=== PATIENT | male | born 1955 | race Caucasian/White ===

== ENCOUNTER 2018-09-25 12:08 | Observation (INO) ==
--- NOTE | 2018-09-25 12:29 | Emergency Department Note ---
Disposition Clinical Impression: Cellulitis of right lower extremity, Open wound of right lower extremity Disposition: Admitted As Inpatient Referrals: NONE,PCP [Primary Care Provider] - Forms: ED Satisfaction Letter Time of Disposition: 16:50 General Adult HPI - General Chief complaint: ED Extremity Injury, Lower Stated complaint: RLE cellulitis Time Seen by Provider: 09/25/18 12:28 - History of Present Illness HPI Narrative: 63-year-old male reports to the emergency department with concerns for right lower extremity swelling and redness. He has been under the care of the wound care center regarding ulcers and wounds on his right leg. The patient states he was sent in for evaluation by wound center personnel for concerns regarding increasing redness and swelling. The patient had recently been on a course of antibiotics, his leg improved, then over the last week things have been worsening. The patient is not diabetic. There is no history of coldness blueness numbness or weakness the right lower extremity. No trauma. The patient denies chest pain shortness of breath abdominal pain vomiting or diarrhea. No acute back pain fevers or rashes on other portions of the body are noted. The patient denies bite or skin injury. There is no history of diabetes mellitus. He describes a remote right lower extremity surgery 20 years ago at [facility] but is unsure what that surgery was. The patient is not anticoagulated. There is no history of syncope or coughing up blood. The patient has no history of DVT or PE. He does describe a history of leukemia. He reports he feels somewhat anxious about his right leg redness. Last tetanus shot 3 years ago. Pain Scale: 0 - Related Data Home Medications Medication Instructions Recorded Confirmed Atorvastatin [Lipitor] 20 mg PO HS 08/03/16 10/24/17 Diclofenac Potassium 100 mg PO HS 08/03/16 10/24/17 Ibuprofen [Motrin] 200 mg PO Q6HR PRN 08/03/16 10/24/17 Cholecalciferol (D-3) [Vitamin D] 1,000 unit PO DAILY 08/17/16 10/24/17 Aspirin [Lo-Dose Aspirin EC] 81 mg PO DAILY 08/02/17 10/24/17 Allergies Allergy/AdvReac Type Severity Reaction Status Date / Time No Known Allergies Allergy Verified 10/24/17 08:37 All systems ED: reviewed and negative except as stated. Physical Exam - General Limitations: no limitations General appearance: alert, in no apparent distress - Head Head exam: atraumatic, normocephalic, normal inspection - Eye Eye exam: Present: normal appearance, PERRL, EOMI - ENT ENT exam: normal exam, normal oropharynx, mucous membranes moist, normal external ear exam - Neck Neck exam: Present: normal inspection, full ROM, trachea midline - Chest Chest inspection: Present: symmetric chest wall rise. Absent: tenderness - Respiratory Respiratory exam: Present: normal lung sounds bilaterally. Absent: respiratory distress, prolonged expiratory phase - Cardiovascular Cardiovascular exam: Present: regular rate, normal rhythm, normal heart sounds - Abdominal Exam Abdominal exam: Present: soft, Non-Tender, normal bowel sounds. Absent: tenderness, distention, guarding, rebound, rigidity - Extremities Exam Extremities exam: Present: full ROM, normal capillary refill. Absent: joint swelling - Expanded Lower Extremity Exam Knee exam: Present: tenderness, swelling, abrasion, other (All 4 extremities are warm and well perfused without evidence of deepali neurovascular or neuromuscular compromise. The upper extremities and left lower extremity are normative in appearance. The right lower extremity below the knee demostrates significant reddening of the skin throughout with an open sore on the right lateral aspect. There is significant swelling throughout without crepitance of the skin. The right lower extremity shows a palpable dorsalis pedis pulse. The right knee thigh and hip show good range of motion throughout no evidence of redness or swelling in the thigh or knee areas.) Neurovascular/Tendon exam: Present: normal capillary refill. Absent: motor deficit, sensory deficit, tendon deficit, extremity cold to touch - Back Exam Back exam: Present: normal inspection, full ROM. Absent: tenderness, CVA tenderness (R), CVA tenderness (L), vertebral tenderness - Neurological Exam Neurological exam: Present: alert, oriented X3, CN II-XII intact. Absent: motor sensory deficit - Psychiatric Psychiatric exam: Present: normal affect, normal mood - Skin Skin exam: Present: warm, dry, intact, normal color Course Vital Signs Temperature 97.8 F 09/25/18 12:14 Pulse Rate 66 09/25/18 12:14 Respiratory Rate 16 09/25/18 12:14 Blood Pressure 131/82 09/25/18 12:14 O2 Sat by Pulse Oximetry 99 09/25/18 12:14 Temperature 97.8 F 09/25/18 13:04 Pulse Rate 60 09/25/18 16:44 Respiratory Rate 18 09/25/18 16:44 Blood Pressure 126/89 09/25/18 16:44 O2 Sat by Pulse Oximetry 100 09/25/18 16:44 Oxygen Delivery Oxygen Delivery Room Air Medical Decision Making - MDM Narrative Medical decision making narrative: The patient describes redness and swelling in the right leg for the last several weeks, he was treated with antibiotics and apparently improved but then got worse. He has been evaluated by the wound center who sent him in for evaluation. The patient describes a remote history of right lower extremity maycol divina at [facility], he is unsure why he had surgery. There is no history of acute trauma to the right lower extremity is not known to be diabetic. He states he has a history of leukemia. The patient's white blood cell count is slightly elevated. His right lower extremity demonstrates no crepitance, there is no evidence of deepali neurovascular or neuromuscular compromise. Based on the patient's apparent failed outpatient therapy with a prior course of antibiotics and recurrent and worsening right lower extremity redness I thought it be appropriate to admit the patient to the hospital. He has circumferential redness, the right dorsalis pedis pulse is palpable. He is neurovascularly intact. I do not neccessarily suspect DVT. Broad-spectrum antibacterial therapy was initiated. Blood cultures were sent. The patient does not appear to meet sepsis criteria. I discussed the case with the hospitalist on-call who has accepted the patient to their care. The patient is agreeable. - Lab Data Lab results reviewed: Yes I reviewed the patient's lab results. Result diagrams: 09/25/18 13:06 09/25/18 13:06 Lab Results 09/25/18 09/25/18 09/25/18 Range/Units 12:56 13:06 13:06 WBC 14.8 H (4.3-11.1) K/mcL RBC 5.10 (4.19-5.50) M/mcL Hgb 13.9 (12.9-16.9) g/dL Hct 44.4 (37.5-50.1) % MCV 87.1 (83.0-100.0) fL MCH 27.3 L (28.0-33.3) pg MCHC 31.3 L (31.6-35.5) g/dL RDW 15.0 H (11.5-14.5) % Plt Count 183 (140-400) K/mcL MPV 9.8 (9.4-12.4) fL Seg Neutrophils % 25.0 % Lymphocytes % 68.0 % Monocytes % 4.0 % Eosinophils % 3.0 % Neutrophils # 3.7 (1.6-8.9) K/mcL Lymphocytes # 10.1 H (0.6-4.6) K/mcL Monocytes # 0.6 (0.0-1.3) K/mcL Eosinophils # 0.4 (0.0-0.6) K/mcL Nucleated RBCs/100 WBC 0.3 H (0) /100 WBC Smudge Cells Present A (Not Present) Platelet Estimate Normal (Normal) ESR 18 H (0-10) mm/hr PT 11.1 (9.4-12.1) Seconds INR 1.0 APTT 31.1 (26.0-36.0) Seconds Sodium (136-145) mEq/L Potassium (3.5-5.1) mEq/L Chloride (98-107) mEq/L Carbon Dioxide (23-29) mEq/L BUN (8-23) mg/dL Creatinine (0.70-1.30) mg/dL Est GFR ( Amer) (> 60) Est GFR (Non-Af Amer) (> 60) BUN/Creatinine Ratio (6-26) Glucose (70-105) mg/dL Calculated Osmolality (280-300) Lactic Acid (0.5-2.2) mmol/L Calcium (8.6-10.3) mg/dL Total Bilirubin (0.3-1.0) mg/dL Direct Bilirubin (0.0-0.2) mg/dL Indirect Bilirubin (0.0-1.2) mg/dL AST (13-39) Units/L ALT (7-52) Units/L Alkaline Phosphatase (34-104) Units/L C-Reactive Protein (Less than 10) mg/L Serum Total Protein (6.4-8.9) g/dL Albumin (3.5-5.7) g/dL Globulin (2.4-3.5) g/dL Albumin/Globulin Ratio (1.1-2.2) Urine Color (Yellow) Urine Clarity (Clear) Urine pH (5.0-8.0) pH Units Ur Specific [place] (1.010-1.025) Urine Protein (Neg-Trace) mg/dL Urine Glucose (UA) (Normal) mg/dL Urine Ketones (Negative) mg/dL Urine Blood (Negative) Urine Nitrite (Negative) Urine Bilirubin (Negative) Urine Urobilinogen (Normal) mg/dL Ur Leukocyte Esterase (Negative) Ur Culture Indicated? (NO) 09/25/18 09/25/18 09/25/18 Range/Units 13:06 13:06 14:00 WBC (4.3-11.1) K/mcL RBC (4.19-5.50) M/mcL Hgb (12.9-16.9) g/dL Hct (37.5-50.1) % MCV (83.0-100.0) fL MCH (28.0-33.3) pg MCHC (31.6-35.5) g/dL RDW (11.5-14.5) % Plt Count (140-400) K/mcL MPV (9.4-12.4) fL Seg Neutrophils % % Lymphocytes % % Monocytes % % Eosinophils % % Neutrophils # (1.6-8.9) K/mcL Lymphocytes # (0.6-4.6) K/mcL Monocytes # (0.0-1.3) K/mcL Eosinophils # (0.0-0.6) K/mcL Nucleated RBCs/100 WBC (0) /100 WBC Smudge Cells (Not Present) Platelet Estimate (Normal) ESR (0-10) mm/hr PT (9.4-12.1) Seconds INR APTT (26.0-36.0) Seconds Sodium 139 (136-145) mEq/L Potassium 4.3 (3.5-5.1) mEq/L Chloride 107 (98-107) mEq/L Carbon Dioxide 27 (23-29) mEq/L BUN 18 (8-23) mg/dL Creatinine 1.14 (0.70-1.30) mg/dL Est GFR ( Amer) > 60 (> 60) Est GFR (Non-Af Amer) > 60 (> 60) BUN/Creatinine Ratio 16 (6-26) Glucose 93 (70-105) mg/dL Calculated Osmolality 290 (280-300) Lactic Acid 1.2 (0.5-2.2) mmol/L Calcium 9.2 (8.6-10.3) mg/dL Total Bilirubin 0.9 (0.3-1.0) mg/dL Direct Bilirubin 0.2 (0.0-0.2) mg/dL Indirect Bilirubin 0.7 (0.0-1.2) mg/dL AST 16 (13-39) Units/L ALT 21 (7-52) Units/L Alkaline Phosphatase 110 H (34-104) Units/L C-Reactive Protein 7 (Less than 10) mg/L Serum Total Protein 6.9 (6.4-8.9) g/dL Albumin 4.4 (3.5-5.7) g/dL Globulin 2.5 (2.4-3.5) g/dL Albumin/Globulin Ratio 1.8 (1.1-2.2) Urine Color Yellow (Yellow) Urine Clarity Clear (Clear) Urine pH 6.5 (5.0-8.0) pH Units Ur Specific [place] 1.011 (1.010-1.025) Urine Protein Negative (Neg-Trace) mg/dL Urine Glucose (UA) Normal (Normal) mg/dL Urine Ketones Negative (Negative) mg/dL Urine Blood Negative (Negative) Urine Nitrite Negative (Negative) Urine Bilirubin Negative (Negative) Urine Urobilinogen Normal (Normal) mg/dL Ur Leukocyte Esterase Negative (Negative) Ur Culture Indicated? NO (NO) - Radiology Data Radiology results reviewed: Yes I reviewed the patient's radiology results.
[2018-09-25] MEDS ORDERED: 0.9 % Sodium Chloride 1,000 ML IVC ONE (12:42)
[2018-09-25] MEDS ORDERED: Clindamycin 600 MG/50 ML 600 MG/50 ML IV.SOLN IVPB STA (12:43)
[2018-09-25] MEDS ORDERED: Piperacillin/Tazobactam 4.5 GM in Water for inj. (sterile) 20 ML IVP ONE (12:43)
[2018-09-25] MEDS ORDERED: Vancomycin (wt based) 1,000 MG VIAL IV ONE (12:43)
[2018-09-25] MEDS ORDERED: *HR* LORazepam 2 MG/ML VIAL IVP ONE (12:44)
[2018-09-25] MEDS ORDERED: Isovue-370 500 ML BOTTLE IVP ONE (12:44)
[2018-09-25] MEDS ORDERED: Piperacillin/Tazobactam 3.375 GM in 0.9 % Sodium Chloride Mini Bag 100 ML IVPB ONE (13:13)
[2018-09-25 13:25] LABS: Hematocrit 44.4 % (37.5-50.1); Hemoglobin 13.9 g/dL (12.9-16.9); Mean Corpuscular HGB Conc 31.3 g/dL (31.6-35.5); Mean Corpuscular Hemoglobin 27.3 pg (28.0-33.3); Mean Corpuscular Volume 87.1 fL (83.0-100.0); Mean Platelet Volume 9.8 fL (9.4-12.4); Monocytes # 0.6 K/mcL (0.0-1.3); Nucleated Red Blood Cells 0.3 /100 WBC (0); Platelet Count 183 K/mcL (140-400); White Blood Count 14.8 K/mcL (4.3-11.1)
[2018-09-25 13:34] LABS: Prothrombin Time 11.1 Seconds (9.4-12.1)
[2018-09-25 13:36] LABS: Activated Partial Thrombo Time 31.1 Seconds (26.0-36.0)
[2018-09-25 13:47] LABS: Alanine Aminotransferase 21 Units/L (7-52); Albumin 4.4 g/dL (3.5-5.7); Albumin/Globulin Ratio 1.8 (1.1-2.2); Alkaline Phosphatase 110 Units/L (34-104); Aspartate Amino Transferase 16 Units/L (13-39); BUN/Creatinine Ratio 16 (6-26); Bilirubin,Direct 0.2 mg/dL (0.0-0.2); Bilirubin,Indirect 0.7 mg/dL (0.0-1.2); Bilirubin,Total 0.9 mg/dL (0.3-1.0); Blood Urea Nitrogen 18 mg/dL (8-23); C-Reactive Protein 7 mg/L (Less than 10); Calcium 9.2 mg/dL (8.6-10.3); Carbon Dioxide 27 mEq/L (23-29); Chloride 107 mEq/L (98-107); Globulin 2.5 g/dL (2.4-3.5); Glucose 93 mg/dL (70-105); Osmolality,Calculated 290 (280-300); Potassium 4.3 mEq/L (3.5-5.1); Sodium 139 mEq/L (136-145); Total Protein 6.9 g/dL (6.4-8.9); eGFR For African Americans > 60 (> 60); eGFR For Non-African Americans > 60 (> 60)
[2018-09-25 14:15] LABS: Bilirubin,Urine Negative (Negative); Blood,Urine Negative (Negative); Clarity,Urine Clear (Clear); Color,Urine Yellow (Yellow); Glucose,Urine (UA) Normal (Normal); Ketones,Urine Negative (Negative); Leukocyte Esterase,Urine Negative (Negative); Nitrite,Urine Negative (Negative); PH,Urine 6.5 pH Units (5.0-8.0); Protein,Urine Negative (Neg-Trace); Specific Gravity,Urine 1.011 (1.010-1.025); Urobilinogen,Urine Normal (Normal)
[2018-09-25 14:20] LABS: Eosinophils # 0.4 K/mcL (0.0-0.6); Lymphocytes # 10.1 K/mcL (0.6-4.6); Neutrophils # 3.7 K/mcL (1.6-8.9)
[2018-09-25 14:22] LABS: Platelet Estimate Normal (Normal); Smudge Cells Present (Not Present)
[2018-09-25] MEDS ORDERED: Naloxone 0.4 MG/ML INJ IVP PRN (16:45)
[2018-09-25] MEDS ORDERED: traMADol 50 MG TABLET PO PRN (16:45)
[2018-09-25] MEDS ORDERED: Vancomycin 1,750 MG in 0.9 % Sodium Chloride 250 ML IVPB SCH (17:00)
[2018-09-25 17:08] LABS: Creatine Kinase 37 Units/L (30-223)
--- NOTE | 2018-09-25 17:15 | Internal Med History&Physical ---
Date of Encounter: 09/25/18 Time of Encounter: 17:09 Internal Medicine - H&P: HPI Chief complaint: worsening cellulitis of the right lower extr Admitted From: Home Plans for Post Hospital Care: Home History of present illness: Mr. 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 Patient presented to the ED due to worsening erythema on the right lower extr. patient reports having a chronic cellulitis on the right lower extr for about 1 year now and he follows up with wound care in the outpatient clinic. Reported completing a course of oral antibiotics about 1 month ago, but stated for about a week now the right lower extremity looks more read and slightly more swollen, and has some darkening of the skin on the lateral side of his calf, where he has an ulcer. Today he went to his follow up appointment at the wound clinic and was instructed to come to the ed for IV antibiotics as the extremity looks worse. He denies fever, chills, nausea, or vomiting. Denies trauma to the extremity. Past Med Surg Social Fam HX - Past Medical History Medical history: other Additional medical history: Leukemia LS Psychiatric history: no psych history - Past Surgical History Additional surgical history: I&D right leg - Social History Smoking Status: Never smoker Smokeless Tobacco Status: No Alcohol use: occasionally Drug use: none Internal Medicine - H&P: Meds Atorvastatin [Lipitor] 20 mg PO HS 08/03/16 [History] Diclofenac Potassium 100 mg PO HS 08/03/16 [History] Ibuprofen [Motrin] 200 mg PO Q6HR PRN 08/03/16 [History] Cholecalciferol (D-3) [Vitamin D] 1,000 unit PO DAILY 08/17/16 [History] Aspirin [Lo-Dose Aspirin EC] 81 mg PO DAILY 08/02/17 [History] Allergy/AdvReac Type Severity Reaction Status Date / Time No Known Allergies Allergy Verified 10/24/17 08:37 All Systems PM: A 10-system review of systems was performed and is negative for pertinent findings except as documented above in the HPI. - Constitutional Constitutional: no chills, no fever(s), no weakness - EENT Eyes: no pain Nose, mouth and throat: no dental pain - Cardiovascular Cardiovascular ROS IM: no chest pain, no dyspnea on exertion, no edema, no irregular heart rhythm, no lightheadedness - Respiratory Respiratory: no cough, no wheezing - Gastrointestinal Gastrointestinal: no abdominal pain, no melena, no nausea, no tenesmus, no vomiting - Genitourinary Genitourinary ROS male: no dysuria - Musculoskeletal Musculoskeletal ROS IM: no back pain - Integumentary Integumentary IM: erythema (Right lower extremity.) - Neurological Neurological ROS: no headache(s) - Psychiatric Psychiatric: no anxiety - Endocrine Endocrine IM: no cold intolerance, no excessive sweating - Hematologic/Lymphatic Hematologic/Lymphatic: no lymphadenopathy - Allergic/Immunologic Allergic/Immunologic: no wheezing, no GI upset with certain foods - Constitutional Vitals: Temp Pulse Resp BP Pulse Ox 97.8 F 60 18 126/89 100 09/25/18 13:04 09/25/18 16:44 09/25/18 16:44 09/25/18 16:44 09/25/18 16:44 Exam: Vitals: Reviewed. General: Alert and oriented 4. In no acute distress. Cardiovascular: RRR, normal S1 & S2, no rubs, murmurs or gallops. Lungs: CTA b/l, no wheezes or crackles. Abdomen: Obese, soft, non-tender, no rigidity. Extremities: edema, erythema of the right lower extr. No tenderness to palpation Neurological: Normal cognition and motor skills. Rest of the physical exam is non contributory Internal Med - H&P Results - Labs CBC & Chem 7: 09/25/18 13:06 09/25/18 13:06 Labs: Short CBC 09/25/18 Range/Units 13:06 WBC 14.8 H (4.3-11.1) K/mcL Hgb 13.9 (12.9-16.9) g/dL Hct 44.4 (37.5-50.1) % Plt Count 183 (140-400) K/mcL Neutrophils # 3.7 (1.6-8.9) K/mcL BMP 09/25/18 13:06 Sodium 139 Potassium 4.3 Chloride 107 Carbon Dioxide 27 BUN 18 Creatinine 1.14 Glucose 93 Calcium 9.2 Liver Function 09/25/18 Range/Units 13:06 Total Bilirubin 0.9 (0.3-1.0) mg/dL Direct Bilirubin 0.2 (0.0-0.2) mg/dL AST 16 (13-39) Units/L ALT 21 (7-52) Units/L Alkaline Phosphatase 110 H (34-104) Units/L Albumin 4.4 (3.5-5.7) g/dL Urine 09/25/18 Range/Units 14:00 Urine Color Yellow (Yellow) Urine Clarity Clear (Clear) Urine pH 6.5 (5.0-8.0) pH Units Ur Specific [place] 1.011 (1.010-1.025) Urine Protein Negative (Neg-Trace) mg/dL Urine Glucose (UA) Normal (Normal) mg/dL - Impressions ITS Impressions Lower Extremity CT 09/25/18 12:44 IMPRESSION: 1. Subcutaneous edema/inflammation with skin thickening along the anteromedial aspect of the leg, extending circumferentially at the level of the ankle. This is in keeping with the clinical history of erythema and swelling. There is no formed fluid collection or abscess. 2. No evidence of soft tissue gas. 3. No acute osseous abnormality. 4. Tricompartmental degenerative changes in the knee with small effusion. D/ / 09/25/2018 16:02:46 [facility] Interpreting Provider: Marco Lala MD - Assessment and Plan (1) Cellulitis of right lower extremity Current Visit: Yes Status: Acute Assessment and plan: Patient with a chronic cellulitis of the right lower ext. with worsening erythema over the past weeks. CT/CT lower leg RT w con IMPRESSION: 1. Subcutaneous edema/inflammation with skin thickening along the anteromedial aspect of the leg, extending circumferentially at the level of the ankle. This is in keeping with the clinical history of erythema and swelling. There is no formed fluid collection or abscess. 2. No evidence of soft tissue gas. 3. No acute osseous abnormality. 4. Tricompartmental degenerative changes in the knee with small effusion. Plan will start patient on broad spectrum antibiotics with vancomycin for MRSA coverage per pharmacy dosing and Piperacillin/Tazobactam 3.375mg/IV Q8HR for pseudomonas coverage tramadol 50mg/PO for pain control draw a map around the erythema to monitor progression extremity elevated >45 degrees doppler us of the lower extr r/o DVT or thrombophlebitis consider ID consult. consider dematology consult for possible biopsy in this patient with chronic cellulitis, ESR and CRP minimally elevated and leukocytosis lymphocytic predominant. (2) HLD (hyperlipidemia) Current Visit: Yes Status: Chronic Assessment and plan: Continue atorvastatin 40 mg by mouth at bedtime. Qualifiers: Hyperlipidemia type: unspecified Qualified Code(s): E78.5 - Hyperlipidemia, unspecified (3) DVT prophylaxis Current Visit: Yes Status: Chronic Assessment and plan: Started on heparin subcutaneous. (4) Obesity (BMI 30-39.9) Current Visit: Yes Status: Acute (5) Open wound of right lower extremity Current Visit: Yes Status: Acute Assessment and plan: plan of care as problem #1 Qualifiers: Encounter type: sequela Qualified Code(s): S81.801S - Unspecified open wound, right lower leg, sequela - Time Spent With Patient Total time spent is greater than 50% in coordination of care (as documented) at patient's floor/unit and/or counseling patient: Greater than 35 minutes (45)
[2018-09-25] MEDS: Piperacillin/Tazobactam 3.375 GM in 0.9 % Sodium Chloride Mini Bag 100 ML IVPB SCH (20:03)
[2018-09-25] MEDS: *HR* Heparin 5,000 UNIT/ML VIAL SQ SCH (21:52)
[2018-09-26 04:19] LABS: Basophils % 0.2 %; Eosinophils # 0.3 K/mcL (0.0-0.6); Eosinophils % 2.7 %; Hematocrit 39.7 % (37.5-50.1); Hemoglobin 12.5 g/dL (12.9-16.9); Immature Granulocytes % 0.3 % (0-4); Lymphocytes # 6.6 K/mcL (0.6-4.6); Lymphocytes % 64.4 %; Mean Corpuscular HGB Conc 31.5 g/dL (31.6-35.5); Mean Corpuscular Hemoglobin 27.1 pg (28.0-33.3); Mean Corpuscular Volume 85.9 fL (83.0-100.0); Mean Platelet Volume 10.1 fL (9.4-12.4); Monocytes # 0.4 K/mcL (0.0-1.3); Monocytes % 3.5 %; Nucleated Red Blood Cells 0.4 /100 WBC (0); Platelet Count 161 K/mcL (140-400); Red Blood Count 4.62 M/mcL (4.19-5.50); Segmented Neutrophils % 28.9 %; White Blood Count 10.2 K/mcL (4.3-11.1)
[2018-09-26 04:36] LABS: BUN/Creatinine Ratio 14 (6-26); Blood Urea Nitrogen 16 mg/dL (8-23); Calcium 8.5 mg/dL (8.6-10.3); Carbon Dioxide 23 mEq/L (23-29); Chloride 110 mEq/L (98-107); Glucose 103 mg/dL (70-105); Magnesium 1.9 mg/dL (1.6-2.6); Osmolality,Calculated 289 (280-300); Phosphorous 2.6 mg/dL (2.7-4.5); Potassium 4.2 mEq/L (3.5-5.1); Sodium 139 mEq/L (136-145); eGFR For African Americans > 60 (> 60); eGFR For Non-African Americans > 60 (> 60)
[2018-09-26 04:54] LABS: Platelet Estimate Normal (Normal); Smudge Cells Present (Not Present)
[2018-09-26] MEDS: *HR* Heparin 5,000 UNIT/ML VIAL SQ SCH ×3 (05:13→20:36)
[2018-09-26] MEDS: Piperacillin/Tazobactam 3.375 GM in 0.9 % Sodium Chloride Mini Bag 100 ML IVPB SCH ×3 (05:13→20:36)
--- NOTE | 2018-09-26 18:23 | Internal Med Progress Note ---
Hospitalist Progress Note - Encounter Date of Encounter: 09/26/18 Time of Encounter: 18:20 - Subjective Interval History: Per patient, leg looks better today. No pain currently. - Exam Vitals: Temp Pulse Resp BP Pulse Ox 97.9 F 92 18 117/70 98 09/26/18 15:34 09/26/18 15:34 09/26/18 15:34 09/26/18 15:34 09/26/18 15:34 Exam: General: Ill-appearing and in no acute distress HEENT: No erythema of posterior pharynx. No exudates. Lymphatics: No mandibular or cervical lymphadenopathy Cardiovascular: RRR. No murmurs. No chest wall tenderness. Lungs: Clear to auscelltation bilaterally. Regular chest rise. Abdomen: Non-tender. No rebound or gaurding. Nl bowel sounds. Extremities: No edema. 2+ pulses radial and pedal pulses Skin: RLL with erythema from knee down to below level of ankle with 3+ edema and multiple shallow ulcerations Psych: Nl attention. A&Ox3 Neuro: lining sewer II-XII intact. 5/5 strength. Sensation to light touch and pinprick intact. - Assessment and Plan (1) Cellulitis of right lower extremity Current Visit: Yes Status: Acute Assessment and Plan: Patient with history of recurrent cellulitis of right lower extremity status post debridements in the past presents with acute worsening erythema in the right lower extremity in the setting of stable vitals on admission (not meeting sepsis criteria), diffuse erythema from knee down to the low level of the ankle on physical exam with multiple shallow ulcerations, and CT with evidence of subcutaneous edema but no evidence of soft tissue gas or abscess. -Likely acute cellulitis in at risk patient -No indication for surgical management -No evidence of DVT with Dopplers -Improving with current therapy PLAN: - Continue IV vancomycin and Zosyn - we will narrow tomorrow - Keep leg elevated above heart - We will likely need to DC with compression stockings and wound care follow-up (2) Obesity (BMI 30-39.9) Current Visit: Yes Status: Acute DVT Prophylaxis: Heparin - Time Spent with Patient Total time spent is greater than 50% in coordination of care (as documented) at patient's floor/unit and/or counseling patient: Internal Medicine: Result - Labs CBC & Chem 7: 09/26/18 03:30 09/26/18 03:30 Labs: Short CBC 09/26/18 Range/Units 03:30 WBC 10.2 (4.3-11.1) K/mcL Hgb 12.5 L (12.9-16.9) g/dL Hct 39.7 (37.5-50.1) % Plt Count 161 (140-400) K/mcL Neutrophils # 3.0 (1.6-8.9) K/mcL BMP 09/26/18 03:30 Sodium 139 Potassium 4.2 Chloride 110 H Carbon Dioxide 23 BUN 16 Creatinine 1.11 Glucose 103 Calcium 8.5 L - ABG Interpretation ABG results: PT/INR, D-dimer PT 11.1 Seconds (9.4-12.1) 09/25/18 13:06 Consult Discharge Plan - Plan Referrals: NONE,PCP [Primary Care Provider] -
[2018-09-27 04:47] LABS: Hematocrit 39.4 % (37.5-50.1); Hemoglobin 12.5 g/dL (12.9-16.9); Mean Corpuscular HGB Conc 31.7 g/dL (31.6-35.5); Mean Corpuscular Hemoglobin 27.4 pg (28.0-33.3); Mean Corpuscular Volume 86.4 fL (83.0-100.0); Mean Platelet Volume 10.1 fL (9.4-12.4); Platelet Count 163 K/mcL (140-400); Red Blood Count 4.56 M/mcL (4.19-5.50); Red Cell Distribution Width 14.9 % (11.5-14.5); White Blood Count 10.8 K/mcL (4.3-11.1)
[2018-09-27 05:04] LABS: BUN/Creatinine Ratio 12 (6-26); Blood Urea Nitrogen 15 mg/dL (8-23); Calcium 8.8 mg/dL (8.6-10.3); Carbon Dioxide 24 mEq/L (23-29); Chloride 108 mEq/L (98-107); Glucose 82 mg/dL (70-105); Osmolality,Calculated 294 (280-300); Sodium 142 mEq/L (136-145); eGFR For African Americans > 60 (> 60); eGFR For Non-African Americans 60 (> 60)
[2018-09-27] MEDS: Piperacillin/Tazobactam 3.375 GM in 0.9 % Sodium Chloride Mini Bag 100 ML IVPB SCH (05:51)
[2018-09-27] MEDS: *HR* Heparin 5,000 UNIT/ML VIAL SQ SCH (05:52)
[2018-09-27] MEDS ORDERED: Aspirin Enteric Coated 81 MG Tablet PO SCH (09:00)
[2018-09-27 10:49] VITALS: BP 131/74
[2018-09-27] MEDS ORDERED: Furosemide 20 MG/2 ML VIAL IVP ONE (12:07)
--- NOTE | 2018-09-27 12:12 | Discharge Summary ---
Orders not resulted at time of discharge: Pending orders 09/25/18 13:27 Culture,Blood [BC] Stat Date of Encounter: 09/27/18 Time of Encounter: 12:10 - Discharge Diagnosis (1) Cellulitis of right lower extremity Priority: Primary Status: Acute (2) Chronic wound of extremity Priority: Secondary Status: Acute (3) Obesity (BMI 30-39.9) Priority: Secondary Status: Acute Hospital course: Mr. Perez is a 63 year old male with history of recurrent cellulitis of right lower extremity status post debridements in the past presents with acute worsening of erythema in the right lower extremity concerning for cellulitis. CT of leg without signs of abscess and US without signs of DVT. Patient was treated with IV antibiotics and discharged home on doxycyline to complete a 7 day course. Told to KEEP LEG ELEVATED given venous stasis in this leg will impair wound healing. Will follow-up with his wound care clinic for dressing changes. Discharge discussed with: patient - Time Spent with Patient Total time spent providing and/or coordinating discharge services: 45 minutes Time spent: Greater than 30 minutes - Discharge Medications Prescriptions: New Doxycycline 100 mg PO BID #10 capsule Continued Ibuprofen [Motrin] 200 mg PO Q6HR PRN PRN Reason: Pain Atorvastatin [Lipitor] 20 mg PO HS Cholecalciferol (D-3) [Vitamin D] 1,000 unit PO DAILY Aspirin [Lo-Dose Aspirin EC] 81 mg PO DAILY Diclofenac Sodium [Voltaren] 150 mg PO HS PRN PRN Reason: Pain Home Medications: Atorvastatin [Lipitor] 20 mg PO HS 08/03/16 [History] Ibuprofen [Motrin] 200 mg PO Q6HR PRN 08/03/16 [History] Cholecalciferol (D-3) [Vitamin D] 1,000 unit PO DAILY 08/17/16 [History] Aspirin [Lo-Dose Aspirin EC] 81 mg PO DAILY 08/02/17 [History] Diclofenac Sodium [Voltaren] 150 mg PO HS PRN 09/26/18 [History] Doxycycline 100 mg PO BID #10 capsule 09/27/18 [Rx] Allergies/Adverse Reactions: Allergy/AdvReac Type Severity Reaction Status Date / Time No Known Allergies Allergy Verified 10/24/17 08:37 Date of admission: 09/25/18 17:01 Primary care physician: PCP NONE Consults: 09/25/18 16:48 Consult to Wound Care [CONS] Stat Reason for Consult: chronic cellulitis of the right lower extr Call Completed: No 09/25/18 19:15 Consult to Member Service Specialist [CONS] Routine Reason for SW Consult: Grief, previous thoughts of suicide, chronic illness - Constitutional Vitals: Temp Pulse Resp BP Pulse Ox 97.5 F L 82 20 131/74 97 09/27/18 10:46 09/27/18 10:46 09/27/18 10:46 09/27/18 10:46 09/27/18 10:46 Exam: General: Ill-appearing and in no acute distress HEENT: No erythema of posterior pharynx. No exudates. Lymphatics: No mandibular or cervical lymphadenopathy Cardiovascular: RRR. No murmurs. No chest wall tenderness. Lungs: Clear to auscelltation bilaterally. Regular chest rise. Abdomen: Non-tender. No rebound or gaurding. Nl bowel sounds. Extremities: No edema. 2+ pulses radial and pedal pulses Skin: RLL with erythema from knee down to below level of ankle with 3+ edema and multiple shallow ulcerations Psych: Nl attention. A&Ox3 Neuro: center administrator II-XII intact. 5/5 strength. Sensation to light touch and pinprick intact. - Patient Status Disposition: Home, Self-Care Condition: Good Functional capacity at discharge: independent ambulation Overall status at discharge: patient is progressing back to baseline - Discharge Instructions Follow Up With: NONE,PCP [Primary Care Provider] - - Diet and Activity Activity: increase activity as tolerated Diet: advance to your usual diet
[2018-09-27] MEDS ORDERED: Doxycycline 100 MG CAPSULE PO SCH ×2 (13:04→21:00)
[2018-09-27] MEDS ORDERED: Furosemide 40 MG TABLET PO ONE (13:46)
--- NOTE | 2018-09-27 15:16 | Physician Discharge Referral ---
Home Health/Hosp Referral Info Attending Provider: Kranthi Briceno MD Provider in Charge Post Discharge: PCP - Diagnosis (1) Cellulitis of right lower extremity Status: Acute (2) Chronic wound of extremity Priority: Secondary Status: Acute (3) Obesity (BMI 30-39.9) Priority: Secondary Status: Acute - Respiratory Orders Smoking Cessation: Smoking cessation has been advised. For more information, call the [employer] Tobacco Quit Line at 0-850-AUIZ-NOW. - Dressing/Wound Care Site: RLE Needs to be dressed with Santyl dressing supplies every 2 days and encourage patient to keep leg elevated. Further recommendations per wound nurse clinic - Diet/Nutrition Diet/Nutrition Orders: Regular - Activity Activity Orders: Up ad gilberto - Transfer Medications Prescriptions: Doxycycline 100 mg PO BID #10 capsule Home Medications: Atorvastatin [Lipitor] 20 mg PO HS 08/03/16 [History] Ibuprofen [Motrin] 200 mg PO Q6HR PRN 08/03/16 [History] Cholecalciferol (D-3) [Vitamin D] 1,000 unit PO DAILY 08/17/16 [History] Aspirin [Lo-Dose Aspirin EC] 81 mg PO DAILY 08/02/17 [History] Diclofenac Sodium [Voltaren] 150 mg PO HS PRN 09/26/18 [History] Doxycycline 100 mg PO BID #10 capsule 09/27/18 [Rx] Allergies/Adverse Reactions: Allergy/AdvReac Type Severity Reaction Status Date / Time No Known Allergies Allergy Verified 10/24/17 08:37 Certification: Further, I certify that my clinical findings support that this patient is homebound (i.e. absences from home require considerable and taxing effort and are for medical reasons or hinduism services or infrequently or short duration when for other reasons) because: Limited mobility due to RLE cellulitis Homebound Reason: Patient requires assistance of a person or device to safely leave home Attestation: My signature below is to certify that this patient is under my care and that I, or nurse practitioner, or a physician's public health training assistant working with me, has a [id number] encounter with this patient.
== END 2018-09-27 14:26 | disposition home or self-care (01) ==
LOC: 3NENU 12:08 → EMEROOARM 12:08 → SUATTDRO 17:01 → 3NENU 17:35
PROVIDERS: ADMIT Internal Medicine; ATTEND Internal Medicine